=== PATIENT | female | born 1960 | race Hispanic/Latino ===

== ENCOUNTER 2023-03-22 01:08 | Emergency (ER) | payer OTHER ==
[~2023-03-22] VITALS: Ht 152.4 cm; Wt 63.5 kg
[2023-03-22 01:33] LABS: APPEARANCE,URINE CLEAR (CLEAR); BILIRUBIN,URINE NEGATIVE (NEGATIVE); COLOR,URINE LIGHT-YELLOW (YELLOW); GLUCOSE, URINE (UA) >=1000 mg/dL (NEGATIVE); KETONES,URINE NEGATIVE (NEGATIVE); LEUKOCYTE ESTERASE ,URINE 75 Leu/uL (NEGATIVE); NITRATE,URINE NEGATIVE (NEGATIVE); OCCULT BLOOD,URINE NEGATIVE (NEGATIVE); PH,URINE 5.5 (5.0-8.0); PROTEIN,URINE NEGATIVE (NEGATIVE); UROBILINOGEN,URINE 0.2 mg/dL (0.2-1.0)
[2023-03-22 01:34] LABS: ADD UA MICROSCOPIC YES
[2023-03-22 01:37] LABS: MUCUS,URINE RARE LPF (None Seen); RBC,URINE 0-1 /HPF (0-1); SQUAMOUS EPITHELIAL CELL,UR RARE /HPF (0-2)
[2023-03-22 01:44] LABS: INFLUENZA TYPE A Negative For Type A (NEGATIVE); INFLUENZA TYPE B Negative For Type B (NEGATIVE); SARS-CoV-2, RNA, NAAT NEGATIVE SARS CoV-2 (NEGATIVE)
[2023-03-22 01:51] LABS: BASOPHILS # (AUTO) 0.03 K/uL (0.00-0.20); BASOPHILS % (AUTO) 0.3 % (0.0-5.0); EOSINOPHILS # (AUTO) 0.13 K/uL (0.00-0.70); EOSINOPHILS % (AUTO) 1.4 % (0.0-8.0); HEMATOCRIT 46.2 % (36-48); IMMATURE GRANULOCYTE ABSOLUTE 0.03 K/uL (0-1); LYMPHOCYTES # (AUTO) 3.2 K/uL (1.0-4.8); LYMPHOCYTES % (AUTO) 33.5 % (21.0-51.0); MEAN CORPUSCULAR HEMOGLOBIN 28.7 pg (27.0-33.0); MEAN CORPUSCULAR HGB CONC 33.3 g/dL (32.0-36.0); MONOCYTES # (AUTO) 0.7 K/uL (0.1-1.0); MONOCYTES % (AUTO) 7.5 % (3.0-13.0); NEUTROPHILS # (AUTO) 5.5 K/uL (1.8-7.7); PLATELET COUNT (AUTO) 361 K/uL (130-400); RED BLOOD CELL COUNT(AUTO) 5.37 MIL/uL (4.00-5.50); RED CELL DISTRIBUTION WIDTH 13.4 % (11.0-15.5); WHITE BLOOD COUNT (AUTO) 9.6 K/uL (4.8-10.8)
[2023-03-22 02:12] LABS: CARBON DIOXIDE 28 mmol/L (21-32); CHLORIDE 100 mmol/L (101-111); CREATINE KINASE, TOTAL 57 U/L (21-232); CREATININE 0.8 mg/dL (0.5-1.5); GLOMERULAR FILTR. RATE CALC 82 mL/min (>90); GLUCOSE,RANDOM 147 mg/dL (70-105); POTASSIUM 4.4 mmol/L (3.5-5.1); SODIUM SERUM 140 mmol/L (136-145); UREA NITROGEN, BLOOD 13 mg/dL (7-18)
[2023-03-22] MEDS ORDERED: PHEN-847 PO (03:29)
[2023-03-22] MEDS ORDERED: FAMO-136 PO (03:29)
[2023-03-22] MEDS ORDERED: METO-296 PO (03:29)
[2023-03-22] MEDS ORDERED: CEPH500B PO (03:29)
[2023-03-22] MEDS ORDERED: METOCLOPRAMIDE 10 MG/2 ML VIAL IVP ONE (03:30)
[2023-03-22] MEDS ORDERED: CEFTRIAXONE 2GM VIAL IVPB ONE (03:30)
[2023-03-22] MEDS ORDERED: FAMOTIDINE 20MG VIAL IV ONE (03:30)
[2023-03-22] MEDS ORDERED: MAGNESIUM OXIDE 400 MG TABLET PO ONE (03:30)
[2023-03-22] MEDS ORDERED: LIDOCAINE HCL 2% VISCOUS 15 ML UDCUP PO ONE (03:30)
[2023-03-22] MEDS ORDERED: MAG/ALUM/SIMETH 30 ML UDCUP PO ONE (03:30)
[2023-03-22] MEDS ORDERED: DICYCLOMINE HCL 10 MG/5 ML ML PO ONE (03:30)
[2023-03-22] MEDS ORDERED: CEFTRIAXONE 1G VIAL ONE (03:32)
[2023-03-22] MEDS ORDERED: ONDANSETRON ODT 4MG TAB ONE (03:33)
[2023-03-22] MEDS ORDERED: PHENAZOPYRIDINE HCL 200 MG TABLET PO ONE (04:00)
[2023-03-22 04:06] VITALS: BP 125/75; PULSE 88; RESP 18; O2SAT 99
[2023-03-22 06:12] LABS: ALBUMIN 4.5 g/dL (3.5-5.0); BILIRUBIN,DIRECT 0.1 mg/dL (0.0-0.3); BILIRUBIN,TOTAL 0.3 mg/dL (0.2-1.0)
== END 2023-03-22 04:20 | disposition home or self-care (01) ==
LOC: EDH 01:08
DX: K29.70 Gastritis, unspecified, without bleeding (principal); N39.0 Urinary tract infection, site not specified; E83.42 Hypomagnesemia; E11.9 Type 2 diabetes mellitus without complications; Z90.49 Acquired absence of other specified parts of digestive tract; Z98.890 Other specified postprocedural states
CPT/HCPCS: 99285; 96365; 71045; 96375; 87635; 82550; 80076; 83735; 84484; 80048; 83690; 85025; 87088; 87804 ×2; 81001; 36415; 93005; J0696